=== PATIENT | male | born 1955 | race Caucasian/White ===

== ENCOUNTER 2022-01-12 13:42 | Outpatient (CLI) | payer OTHER, SELFPAY ==
[2022-01-12 14:02] LABS: Hemoglobin A1C* 6.2 % (0-5.6)
[2022-01-12 22:56] LABS: Chloride* 104 mmol/L (96-114); Potassium* 4.5 mmol/L (3.6-5.1); Sodium* 140 mmol/L (135-149)
[2022-01-12 22:59] LABS: Blood Urea Nitrogen* 26 mg/dL (7-30); Carbon Dioxide* 23 mmol/L (20-32); Creatinine* 0.9 mg/dL (0.5-1.5); Estimated Glomerular Filt Rate 93 ml/min
[2022-01-12 23:00] LABS: Calcium* 9.4 mg/dL (8.4-10.6); Glucose* 112 mg/dL (60-115)
== END 2022-01-12 13:43 | disposition home or self-care (01) ==
LOC: LKVREF 13:44
PROVIDERS: PCP Family Medicine; Visit Provider Family Medicine
DX: E11.9 Type 2 diabetes mellitus without complications (principal); I10 Essential (primary) hypertension
CPT/HCPCS: 80048; 83036

== ENCOUNTER 2022-01-20 09:02 | Outpatient (CLI) | payer OTHER, SELFPAY ==
--- NOTE | 2022-01-20 09:15 | MR_ITS ---
[facility] [address] [facility] [address] Phone:?[phone] Fax:?[phone] Referring Physician Information: Delvin Jones M.D. [id number] [facility] [address] Phone:?[phone] Fax:?[phone] Patient:No Jose D.O.B:?1955 Sex:?Male Phone:?[phone] [facility] MRN:?[id number] Exam Date:?01/20/2022 ? EXAM: MRI of the RIGHT KNEE, without contrast CLINICAL INFORMATION: Male, 66 years old, with medial right knee pain. INDICATION: Evaluate for meniscal tear. PRIOR SURGERY: None reported. PLAIN FILMS: None available. COMPARISONS: No prior MRIs available. TECHNICAL INFORMATION: Using a 1.5T MR scanner and a localizing surface coil: sagittals: PD, PDFS coronals: PD, STIR axials: PD, T2FS SEDATION: None CONTRAST: None FINDINGS: Knee joint: Effusion: Small right knee effusion. Popliteal cyst: None. Loose bodies: None. Subcutaneous and extra-articular soft tissues: Moderate anterior subcutaneous soft tissue swelling extending from the patella to the tibial tubercle (sagittal PDFS series 6 image 14). Ligaments: ACL: Intact ACL anteromedial and posterolateral bundles, without sprain or tear. PCL: Intact PCL, without acute or chronic injury. MCL: Intact MCL superficial and deep layers, without injury. LCL: Intact LCL, without injury. Posterolateral corner: No posterolateral corner soft tissue injury. Popliteus, biceps femoris, iliotibial band, popliteofibular ligament and lateral gastrocnemius are intact. Posteromedial corner: No posteromedial corner soft tissue injury. Semimembranosus, pes anserine tendons and posterior oblique ligament are without injury, tendinopathy or bursitis. Extensor mechanism: Patellar tendon: Intact, without tendinopathy. Quadriceps tendon: Intact, without tendinopathy. Retinacula: Medial and lateral retinacula are intact. Fat pads: Unremarkable infrapatellar Hoffa's, quadriceps and prefemoral fat pads. Medial compartment: Medial meniscus: Complex apical free edge and undersurface tearing of the posterior horn and body of the medial meniscus is present over a length of approximately 3.5 cm (sagittal PDFS series 6 images 19-25 and coronal STIR series 8 images 16-21). Meniscal extrusion measures 4 mm. No parameniscal cyst. A 7 x 6 x 3 mm flap fragment is located superior to the periphery of the body segment. Additionally, there is a 4 x 2 x 6 mm flap fragment in the meniscotibial recess (coronal STIR series 8 image 17 and axial T2FS series 4 image 22). Medial femoral condyle & tibial plateau: Broad-based grade II/III chondromalacia throughout the central, weightbearing aspect of the medial compartment, with minimal marginal osteophytosis. Lateral compartment: Lateral meniscus: Intrasubstance degeneration is present throughout the anterior and posterior roots of the lateral meniscus, without discrete lateral meniscal tearing. Lateral femoral condyle: No chondromalacia or osteochondral abnormality. Lateral tibial plateau: No chondromalacia or osteochondral abnormality. Patellofemoral joint: Patella: Broad-based grade II/III chondromalacia throughout the medial facet and median ridge of the patella, with minimal marginal osteophytosis. Trochlea: Broad-based mild grade II chondromalacia throughout the central sulcus of the trochlea, with minimal marginal osteophytosis. Proximal tibiofibular joint: Unremarkable, without evidence of ligament sprain injury, joint effusion or adjacent marrow edema. Bones: No stress/occult fractures or other marrow edema/pathology. IMPRESSION: 1. Complex apical free edge and undersurface tearing of the posterior horn and body medial meniscus measuring 3.5 cm, with 4 mm of meniscal extrusion and 2 small flap fragments, the larger of which measures 7 x 6 x 3 mm and is located superior to the periphery of the body segment. 2. Mild osteoarthritis of the medial and patellofemoral compartments. 3. Small knee joint effusion with nonspecific moderate anterior subcutaneous soft tissue swelling. No popliteal (Galo's) cyst. 4. No cruciate or collateral ligament sprain/tear. 5. No lateral meniscal tear or significant osteochondral abnormality of the lateral compartment. 6. No myotendinous abnormality. BC Electronically signed on 01/20/2022 11:57:00 AM by Codey Dias M.D.
== END 2022-01-20 09:03 | disposition home or self-care (01) ==
PROVIDERS: PCP Family Medicine; Visit Provider Family Medicine
DX: M25.561 Pain in right knee (principal); M23.221 Derangement of posterior horn of medial meniscus due to old tear or injury, right knee; M17.11 Unilateral primary osteoarthritis, right knee; M25.461 Effusion, right knee
CPT/HCPCS: 73721

== ENCOUNTER 2022-07-17 09:14 | Outpatient (CLI) | payer OTHER, SELFPAY ==
[2022-07-17 14:09] LABS: Albumin* 4.8 g/dL (3.3-5.0)
[2022-07-17 14:10] LABS: Chloride* 106 mmol/L (96-114); Potassium* 4.6 mmol/L (3.6-5.1); Sodium* 141 mmol/L (135-149)
[2022-07-17 14:12] LABS: Aspartate Amino Transferase* 31 U/L (12-35); Bilirubin Total* 0.8 mg/dL (0.1-1.5); Carbon Dioxide* 24 mmol/L (20-32); Cholesterol* 164 mg/dL (90-199); Creatinine Urine 164.7 mg/dL; Estimated Glomerular Filt Rate 81 ml/min; Total Protein* 7.9 g/dL (6.0-8.3)
[2022-07-17 14:13] LABS: Alanine Aminotransferase* 44 U/L (4-50); Alkaline Phosphatase* 56 U/L (40-150); Blood Urea Nitrogen* 25 mg/dL (7-30); Glucose* 137 mg/dL (60-115); HDL Cholesterol* 46 mg/dL (>=40); LDL Cholesterol Calculated 67 mg/dL (<100); Triglycerides* 257 mg/dL (40-149)
[2022-07-17 14:16] LABS: Microalbumin Creatinine Ratio 0 mg/g (0-30); Microalbumin Urine 1 mg/dL
== END 2022-07-17 09:15 | disposition home or self-care (01) ==
PROVIDERS: PCP Family Medicine; Visit Provider Family Medicine
DX: Z00.00 Encounter for general adult medical examination without abnormal findings (principal); E11.9 Type 2 diabetes mellitus without complications; E78.00 Pure hypercholesterolemia, unspecified; I10 Essential (primary) hypertension; E66.9 Obesity, unspecified; F41.9 Anxiety disorder, unspecified
CPT/HCPCS: 80053; 80061; 82043; 82570

== ENCOUNTER 2023-07-19 08:05 | Outpatient (REF) | payer OTHER, SELFPAY | END 2023-07-19 08:06 | disposition home or self-care (01) | LOC: NFLDREF 08:05 | PROVIDERS: PCP Family Medicine; Referring Provider Family Medicine; Visit Provider Family Medicine | DX: E11.9 Type 2 diabetes mellitus without complications (principal); E78.00 Pure hypercholesterolemia, unspecified; I10 Essential (primary) hypertension; Z12.5 Encounter for screening for malignant neoplasm of prostate | CPT/HCPCS: 80053; 80061; 82043; 82570; G0103 ==

== ENCOUNTER 2023-10-01 09:45 | Outpatient (RCR) | payer OTHER, SELFPAY ==
--- NOTE | 2023-09-10 14:17 | PT.OPE ---
PT [facility] Outpatient Eval PT [facility] Outpatient Eval Start: 09/10/23 13:43 Freq: Status: Active Protocol: Document 09/10/23 13:43 BMS (Rec: 09/10/23 13:44 BMS [id number]) E-signed By Mary Victoria PT Physical Therapy Outpatient Evaluation Insurance Information Recert Due Date 12/08/23 Insurance Information/Comments [employer] Advantage Medical Diagnosis OA R knee, strain R gastrocnemius S86.111A Strain of other muscles and tendons of posterior muscle group at lower leg level R leg M17.11 unilateral primary OA R knee Treating Diagnosis R knee pain M25.561 R leg pain M79.604 abnormalities of gait R26.89 R foot/ankle pain M25.571 Referring MD Rodo FERNANDO Subjective Subjective have had an extreme amount of stress as has been in and out of hospitals since last fall, just finished 3 months of home care and is on 30 meds , has dementia. I was on treadmill working on stress and fitness when I reached for [employer], must have bumpted the speed paddle on treadmill (cup reina is behind this) and speed went from 1-2 to 10, tried to step off to the side, L LE made it R did not, tread pulled leg under and back and skinned knee and bateman, still a little bit left. Feels like it gives out with standing up and step, pain can shoot from middle 3 toes on right foot up foot and leg, and cramping in thigh front and back. feels so tight , like a tug of war btwn foot and knee. today is 1st day with no crutches, di dhave hx of L foot fx, and L menisectomy L besides the tight and pain as well as Pain Comments -11/14 depend on activity and time of day. sitting to stand, 'tug of war btwn toes and knee'. feels like might give out when stand on it Current Work Status Retired Occupation W[employer] IN[employer] Precautions Treatment Precautions/Contraindications depression, HTN, OA, tremor ( on antiseizure med) Objective Range of Motion knee mobility R 0-0-115, L = 0 -0-135 hip flex > 50 w straight knee, > 80 w knee flex, not tolerated > 80 due to inc pain in back and hip Strength MMT seated hip flex R 4-/5, L 4/5 quad R 4-/5, L 5/5 HS 4-/5, L 5/5 seated abd/ add 4/5 wtih increased large amplitude tremors. Swelling across patella R = 42.0, L = 41.25 12 cm distal to inferior pole of patella: R= 44.75, L = 46. 75cm Palpation mod to severe tenderness of calf mack gastrox prox and HS mid to distal. restrictions in tissue mobility noted throughout quad, HS and calf. pain with ROM resting tremor B UE and LE to various degrees. Balance & Gait wide RIP, some deviation from path with antalgia, lack of pushoff Posture head forward inc shoulder rounding forward, inc body habitus, R LE alt neutral to IR. in standing Other/Pertinent Objective (-) Tiara, PCl, varus/ valgus. unable to scour due to pain Assessment Assessment/Impression Patient is very pleasant 68 yo male referred for R knee pain after fall on a treadmill in Jun. He reports pain today of 4-11/14, has seen ortho who referred him for suspected gastroc strain and OA. He presents with antalgic wide based gait, (no axillary crutches this date though patient admits this is first day without them) weakness and pain in R knee and lower leg. Denies numbness but reports cramping in thigh and hamstring as well as sharp shooting pain from middle 3 toes on R foot through leg. Has had episodes of feeling the knee would give out with sit/ stand and step. He presents today with impaired tissue mobility HS, calf and quad, resting tremor that does not go away with intention in all 4 limbs to varying degrees, including in hip abd/ add with exertion. Does eliminate with rested supine and pillow under knee. Further assess may be warranted in future, but may also be due to inc stress. Balance not assessed this date, primary focus was on calming symptoms and strengthening for ADLs and tasks asssociated with being primary caregiver dependent caregiving of . Patient fredrick steen HS curl in prone , and reports pain and tightness much improved after session. He is appropriate for skilled physical therapy to improve mobility, strength and balance/ gait as well as pain management for return to walking and exercise classes for managment of chronic conditions including depression and HTN and elevated stress. Primary Functional Limitations reach, lift, walk, roll in bed , sit to stand, steps, gait for fitness Plan of Care Rehabilitation Potential Good Physical Therapy Goals 1) Pt demo I with home program for strength, flexibility and balance as well as pain management strategies. 2) Pt demo gait pattern without antalgia, with equal stride lengths and demo appropriate hip, knee, and ankle motions. 3) Pt demo appropriate balance responses to decrease risk of falls with internal and external perturbations. 4) Pt demo ability to ascend/ descend steps without pain or failure to control eccentric motion for access to home laundry and shower. 5) Pt will demo 500' ambulation without limp and with best mechanics and balance to decrease risk of fall with community ambulation for things such as grocery shopping, participation in fitness activities. 6) Pt will demo ability to return to walking, and functional strengthening for management of comorbidities to maximize independence and longevity. Coordination/Communication With Referral Source Treatment Plan/Direct Interventions Electrical Stimulation,Gait Training,Ice/Cold/ Vasopneumatic,Manual Therapy, Neuromuscular Re-ed,Orthotics/ Braces,Self-Care/Home Management,Therapeutic Activities,Therapeutic Exercises,Ultrasound Frequency/Duration 1-2x week x 10 sessions Patient Will Be Discharged From Therapy Completion of LTG(s),Skills Plateau,Independent w/HEP, Independently Progressing Evaluation Billing Untimed Code Treatment Minutes 40 Complexity Low Certification Information Initial Certification Date 09/10/23 Ending Certification Date 12/08/23 Provider Signature Shows Agreement With POC & Medical Necessity Physician Signature & Date Requested Please Sign/Date Here Physician Comment/Change : Physician NPI Number #
== END 2024-01-29 23:59 | disposition home or self-care (01) ==
PROVIDERS: PCP Family Medicine; Visit Provider Orthopaedic Surgery Sports Medicine
DX: S86.111A Strain of other muscle(s) and tendon(s) of posterior muscle group at lower leg level, right leg, initial encounter (principal); M17.11 Unilateral primary osteoarthritis, right knee; M25.561 Pain in right knee; M79.604 Pain in right leg; R26.89 Other abnormalities of gait and mobility; M25.571 Pain in right ankle and joints of right foot; Z51.89 Encounter for other specified aftercare
CPT/HCPCS: 97110; 97140; 97161

== ENCOUNTER 2024-03-06 07:36 | Outpatient (CLI) | payer OTHER, SELFPAY ==
--- NOTE | 2024-03-06 10:13 | W.ANESCHARGE ---
Anesthesia Charges Start Date/Time Anesthesia Start Date: 03/06/24 Anesthesia Start Time: 09:01 Stop Date/Time Anesthesia Stop Date: 03/06/24 Anesthesia Stop Time: 08:31
--- NOTE | 2024-03-06 11:04 | W.ANESCHARGE ---
Anesthesia Charges Start Date/Time Anesthesia Start Date: 03/06/24 Anesthesia Start Time: 09:01 Stop Date/Time Anesthesia Stop Date: 03/06/24 Anesthesia Stop Time: :31 Summary Extremes of Age - Over 70 or under 1: MDA
--- NOTE | 2024-03-06 11:08 | W.ANESCHARGE ---
Anesthesia Charges Start Date/Time Anesthesia Start Date: 03/06/24 Anesthesia Start Time: 09:01 Stop Date/Time Anesthesia Stop Date: 03/06/24 Anesthesia Stop Time: 09:31
== END 2024-03-06 07:37 | disposition home or self-care (01) ==
LOC: OP CLINIC 07:36
PROVIDERS: PCP Family Medicine; Visit Provider Surgery
DX: Z12.11 Encounter for screening for malignant neoplasm of colon (principal); Z86.010 Personal history of colon polyps
CPT/HCPCS: 00811; 00812; 00813; 45378; 99100

== ENCOUNTER 2024-07-17 08:17 | Outpatient (CLI) | payer MEDICARE, SELFPAY | END 2024-07-17 08:18 | disposition home or self-care (01) | LOC: NFLDREF 07-21 03:05 | PROVIDERS: PCP Family Medicine; Referring Provider Family Medicine; Visit Provider Family Medicine | DX: E11.9 Type 2 diabetes mellitus without complications (principal); I10 Essential (primary) hypertension; E78.00 Pure hypercholesterolemia, unspecified; Z12.5 Encounter for screening for malignant neoplasm of prostate | CPT/HCPCS: 80053; 80061; 82043; 82570; G0103 ==

== ENCOUNTER 2025-01-03 12:50 | Emergency (ER) | payer MEDICARE, SELFPAY ==
--- OUTSIDE RECORDS SUMMARY | 2025-01-03 12:52 | XMS_ITS | Clinical Summary ---
Author Organization [facility] Address [address] [place] [id number] Care Team Providers Care Manager Research Name Role Phone Julius Avalos MD Primary Care Provider [phone] Allergies No known active allergies Medications aspirin 81 mg tabletIndicatio ns:myocardial infarction prevention Take 81 mg by mouth once daily with a meal. Indications: MYOCARDIAL INFARCTION PREVENTION Active atenolol (TENORMIN) 50 mg tabletIndicatio ns:hypertension Take 50 mg by mouth once daily. Takes in the evening Indications: HYPERTENSION Active ibuprofen (ADVIL; MOTRIN) 200 mg tabletIndicatio ns:pain Take 200 mg by mouth 4 times daily if needed. Indications: PAIN Active minocycline (MINOCIN) 100 mg tablet Take 100 mg by mouth once daily. Active multivitamin (MVI) tabletIndicatio ns:vitamin deficiency prevention Take 1 tablet by mouth once daily. Indications: VITAMIN DEFICIENCY PREVENTION Active sertraline (ZOLOFT) 50 mg tablet Take 100 mg by mouth once daily. Active Active Problems Problem Noted Date Diagnosed Date Tear of medial cartilage or meniscus of knee, cu rrent 03/08/2012 Immunizations Immunization Administration Dates Next Due Influenza, High-dose Inactivated 03/06/2013 Influenza, IIV3 (Age >=3 years) 03/17/2011,03/19 Tdap 03/08/2012 Zoster (Zostavax-ZVL, live) 05/22/2013 Social History Tobacco Use Types Packs/Day Years Used Date Smoking Tobacco: Never Smokeless Tobacco: Never Alcohol Use Standard Drinks/Week Comments Not Asked 0 (1 standard drink = 0.6 oz pur e alcohol) 1-2 per year Sex and Gender Information Value Date Recorded Sex Assigned at Not on file Legal Sex Male 6:20 AM TAPE DUPLICATOR Gender Identity Not on file Sexual Orientation Not on file Obstetrics History Last Filed Vital Signs Vital Sign Reading Time Taken Comments Blood Pressure 126/86 06/19/2013 10:15 AM TAPE DUPLICATOR Pulse 80 06/19/2013 10:15 AM TAPE DUPLICATOR Temperature 36.2 C (97.2 F) 06/19/2013 10:15 AM TAPE DUPLICATOR Respiratory Rate 16 06/19/2013 10:1 5 AM TAPE DUPLICATOR Oxygen Saturation 98% 06/19/2013 10: 15 AM TAPE DUPLICATOR Inhaled Oxygen Concentration - - Weight 116.7 kg (257 lb 3.2 oz) 06/19/2013 7:31 AM TAPE DUPLICATOR Height 177.7 cm (5' 9.96) 06/19/2013 7:31 AM CS T Body Mass Index 36.95 06/19/2013 7:31 AM TAPE DUPLICATOR Plan of Treatment Health Maintenance Due Date Last Done Comments Depression screening for age 12+ 1965 BMI (ht and wt on same day) for age 18+ 1971 Hepatitis C screening for ag e 18-79 1971 Colonoscopy through age 75 1998 Lipids for age 45-75 1998 Pneumococcal series for age 50+ (1 of 1 - PCV) 2003 Zoster (shingles) series for age 50+ (2 of 3) 07/17/2013 05/22/2013 Tetanus booster 03/08/2022 03/08/2012 COVID-19 vaccine series ( - season) 2024 Influenza Vaccine (#1) 2025 3, 03/17/2011, 03/19/2009 RSV vaccine for adults or (1 - 1-dose 75+ series) 2028 Hepatitis B series for 19+ Aged Out N o longer eligible based on patient's age to complete this topic Insurance [facility] [place] Advance Directives * Full Code (Latest Code Status on File) Date Activated Date Inactivated Comments 06/19/2013 6:57 AM 06/19/2013 12:28 PM * Full Code Date Activated Date Inactivated Comments 03/09/2012 11:47 AM 03/09/2012 3:49 PM * Full Code Date Activated Date Inactivated Comments 03/08/2012 4:31 PM 03/09/2012 11:47 AM Care Teams Manager Research Relationship Specialty Start Date End Date Julius Avalos MD PCP - General Family Practice 02/29/12
[2025-01-03 12:58] VITALS: BP 127/78; PULSE 78; RESP 20; TEMP 36.2; O2SAT 98
--- NOTE | 2025-01-03 13:48 | ED_ITS ---
HPI - General Adult General Date Seen: 01/03/25 Chief complaint: Back Injury/Pain Stated complaint: Back pain Time Seen by Provider: 01/03/25 13:06 History of Present Illness HPI narrative: 69 yo M with history of diabetes, hypertension, cholesterol, elevated BMI, depression/anxiety, sleep apnea who is brought to the ER today by EMS for back pain. His back pain began yesterday. He does not have any history of longstanding back pain no history of back surgeries. He did have to bend over to help his yesterday. She does have dementia and uses a wheelchair for a lot of her transfers. He is back did feel little bit stiff yesterday after helping his and was stiff when he went to bed. When he woke up this morning and more stiffness in his back but he was able to get up and start his day. He actually went to [facility] today. He planned to soak in a hot tub for his back right thumb do a workout. However when he was moving to the shower at [facility] he felt as though he had a stone in his flip-flop. He bent forward and try to bend his left leg up to take the stone out and when he did that he had abrupt onset of a severe pain in his mid low back. It felt like his muscles were spasming and twinging. He was quite intense and he has done under the hot shower for a few minutes and was able to get it to resolve. He decided not to do the hot tub. He was able to get out of life time and get back into his car but upon getting back into the car his pain got worse again. He was able drive home he notes that after getting out of his car at home and moving up the steps he was having severe twinges of pain in his back. He was calling out in crying to his because of the pain. He was not really able to walk any further so called 911. He received Toradol through an IV stabs by EMS and had only partial improvement. He is not resting in bed without too much pain but has lot of pain whenever he tries to sit up or move. The pain is located in the midline of his upper low back. He does not have any pain into his flanks or into his abdomen. No pain into his ribs or chest. No pain or numbness radiating down his legs. Bowel movements and urination has been normal. No recent falls or injuries. No history of cancer. No history of immunosuppression. Related Data Home Medications ?Medication ?Instructions ?Recorded ?Confirmed clindamycin phosphate 1 % topical 1 applic topical .ev angela other day 01/12/22 01/03/25 solution aspirin 81 mg tablet,delayed 81 mg PO QDAY 01/23/22 release (Adult Aspirin Regimen) multivitamin (Multiple Vitamins 1 tab PO QDAY 01/23/22 01/03/25 tablet) triamcinolone acetonide 0.025 % 1 applic topical BID 0 01/23/22 01/03/25 topical cream clobetasol 0.05 % scalp solution topical BID PRN itch 01/20/24 10/09/24 Previous Rx's ?Medication ?Instructions ?Recorded metronidazole 0.75 % topical cream 1 applic topical BI D #45 grams 09/11/22 (MetroCream) clonazepam 0.5 mg tablet 0.5 mg PO .hs #90 tabs 08/01 lisinopril 10 mg tablet 10 mg PO QDAY #90 tabs 08/01 sertraline 100 mg tablet 100 mg PO QDAY #90 tabs 07/09 10/29 atorvastatin 10 mg tablet 10 mg PO QHS #90 tabs metoprolol succinate 50 mg 50 mg PO DAILY #90 tabs 08/01 tablet,extended release 24 hr semaglutide 3 mg tablet (Rybelsus) 3 mg PO QDAY #90 ta bs 11/02/24 Allergies Allergy/AdvReac Type Severity Reaction Status Date / Time No Known Drug Allergies Allergy Verified 01/03/25 13:30 [facility] Medical History (Updated 01/03/25 @ 16:15 by Dennis Da Silva MD) Obesity (BMI 30-39.9) ?E66.9 - Obesity, unspecified (ICD-10) Degenerative tear of medial meniscus of right knee ?M23.203 - Derangement of unspecified medial meniscus due to old tear or injury, right knee (ICD-10) Osteoarthritis of right knee ?M17.11 - Unilateral primary osteoarthritis, right knee (ICD-10) Folliculitis ?L73.9 - Follicular disorder, unspecified (ICD-10) Rosacea ?L71.9 - Rosacea, unspecified (ICD-10) Diabetes mellitus ?E11.9 - Type 2 diabetes mellitus without complications (ICD-10) Encounter for annual wellness exam in Medicare patient ?Z00.00 - Encounter for general adult medical examination without abnormal findings (ICD-10) Knee pain, right ?M25.561 - Pain in right knee (ICD-10) Surgical History (Updated 01/20/22 @ 12:32 by Urvashi Gallagher ~ [facility], REGISTERED PHARMACY TECHNICIAN) History of lateral meniscus repair of left knee ?Z98.890 - Other specified postprocedural states (ICD-10) Status post cholecystectomy ?Z90.49 - Acquired absence of other specified parts of digestive tract (ICD- 10) History of oral surgery ?Z98.890 - Other specified postprocedural states (ICD-10) Family History (Updated 01/20/22 @ 12:34 by Urvashi Gallagher ~ [facility]) Mother Heart problem High blood pressure Father Heart problem High blood pressure Maternal Grandmother Stroke Maternal Grandfather Stroke Paternal Grandfather Suicide Social History (Updated 08/02/24 @ 08:45 by Patricia Capellan ~ [facility]) What is your current living situation?: I presently have a place to live Problems where you live: no known problems In the past 12 months, utilities in danger of being shut off: no In past 12 months, lack of transportation kept you from medical appts, meetings, work, or getting things needed for daily living: no In the past 12 mos, have been you worried that your food would run out before you had money to buy more?: never true In the past 12 mos, the food you bought just didn't last and you didn't have money to buy more?: never true Smoking Status: Never smoker How often do you have a drink containing alcohol: monthly or less AUDIT-C Alcohol total score: 1 Non-prescribed substance use: denies use How often does anyone, including family, friends and others, physically hurt you : never How often does anyone, including family, friends and others, insult or talk down to you: never How often does anyone, including family, friends and others, threaten you with harm: never How often does anyone, including family, friends and others, scream or curse at you: never Exam Narrative: Exam Narrative: Constitutional: Appears well-developed and well-nourished. Alert. Conversant. Non toxic. HENT: Head: Atraumatic. Nose: Nose normal. Mouth/Throat: Oral mucosa is clear and moist. no trismus. Eyes: Conjunctivae normal. EOM normal. Pupils equal, round, and reactive to light. No scleral icterus. Neck: Normal range of motion. Neck supple. No tracheal deviation present. Cardiovascular: Normal rate, regular rhythm. No gallop. No friction rub. No murmur heard. Symmetric radial artery pulses Pulmonary/Chest: Effort normal. No stridor. No respiratory distress. No wheezes. No rales. No rhonchi . No ribcage tenderness. Abdominal: Soft.No distension. No mass. No tenderness. No rebound. No guarding. No CVA tenderness Musculoskeletal: RUE: Normal range of motion. No tenderness. No deformity LUE: Normal range of motion. No tenderness. No deformity RLE: Normal range of motion. No edema. No tenderness. No deformity LLE: Normal range of motion. No edema. No tenderness. No deformity Lymph: No cervical adenopathy. Neurological: Alert and oriented to person, place, and time. Normal strength. CN II-VII intact. No sensory deficit. GCS eye subscore is 4. GCS verbal subscore is 5. GCS motor subscore is 6. Normal coordination Skin: Skin is warm and dry. No rash noted. No pallor. Normal capillary refill. Sensory: Normal light touch sensation bilaterally on the anteromedial thigh (L3), medial malleolus (L4), dorsal first web space (L5), lateral malleolus (S1). Strength: 5/5 strength hip flexors (L3) on the rig ht and left 5/5 strength in the quadriceps (L4) on t he right and left 5/5 strength in the tibialis anterior 5/5 strength in the EHL (L5) on the righ t and left 5/5 strength in the gastrocnemius (S1) o n the right and left 5/5 strength in the hamstring on the rig ht and left DTRs: symmetric in the patella (2/4) and in the achilles tendons. Negative straight leg raise bilaterally. Psychiatric: Normal mood. Normal affect. Const: Vital Signs, click to edit/add: Vital Signs - 24 hr 01/03/25 12:58 01/03/25 15:43 Temperature 97.2 F L 97.6 F Pulse Rate [Pulse Oximeter] 78 70 Respiratory Rate 20 18 Blood Pressure [Ri ght Upper Arm] 127/78 122/70 Pulse Oximetry 98 95 Oxygen Delivery Me thod Room Air Room Air Course Course ED Course: Recheck-pain improved. Able to ambulate in the hallways only has a mild spasm. Vital Signs Vital signs: Initial Vital Signs Temperature 97.2 F L 01/03/25 12:58 Temperature Source Temporal Artery Scan 01/03/25 12:58 Pulse Rate 78 01/03/25 12:58 Respiratory Rate 20 01/03/25 12:58 Blood Pressure 127/78 01/03/25 12:58 Blood Pressure Mean 94 01/03/25 12:58 Pulse Oximetry 98 01/03/25 12:58 Oxygen Delivery Method Room Air 01/03/25 12:58 Vital Signs Temperature 97.2 F L 01/03/25 12:58 Pulse Rate 78 01/03/25 12:58 Respiratory Rate 20 01/03/25 12:58 Blood Pressure 127/78 01/03/25 12:58 Pulse Oximetry 98 01/03/25 12:58 Oxygen Delivery Method Room Air 01/03/25 12:58 Temperature 97.6 F 01/03/25 15:43 Pulse Rate 70 01/03/25 15:43 Respiratory Rate 18 01/03/25 15:43 Blood Pressure 122/70 01/03/25 15:43 Pulse Oximetry 95 01/03/25 15:43 Oxygen Delivery Method Room Air 01/03/25 15:43 Medications Administered Medications: Discontinued Medications Generic Name Dose Route Start Last Admin Trade Name Bessie PRN Reason Stop Dose Admin Diazepam 5 mg 01/03/25 14:06 01/03/25 14:17 Diazepam 5 Mg Tablet PO 01/03/25 14:07 5 mg ONCE ONE Administration Hydromorphone HCl 1 mg 01/03/25 14:06 01/03/25 14:19 Hydromorphone 0.5 Mg/0.5 Ml Inj IVP 01/03/25 14:07 1 mg ONCE ONE Administration Medical Decision Making [facility] Narrative Medical decision making narrative: This patient presented with back pain. Broad differential considered. He started having back pain and stiffness yesterday after he had helped his off the floor. The patient did not sustain any trauma, therefore x-rays are not necessary due to the low likelihood of fracture or subluxation. No red flag symptoms to suggest CT and/or MRI is indicated at this point. The patient has not had a fever, saddle/perineal anesthesia, bilateral foot numbness, or bowel or bladder dysfunction. There is no clinical evidence of cauda equina syndrome, discitis, spinal/epidural space hematoma or epidural abscess. The neurological exam is normal and the patient's symptoms seem consistent with a musculoskeletal issues and significant muscle spasm. Pain has improved with interventions in the emergency department. The patient will be discharged with pain medications to use as directed. Ice or heat to the back and stretching exercises. No heavy lifting, bending or twisting. Return if increasing pain, numbness, weakness, or bowel or bladder dysfunction. The patient was advised to schedule follow-up with their primary doctor within 3-5 days to re-assess symptoms. Return precautions reviewed and questions answered. Instymeds prescription for oxycodone 5 mg tablets, Flexeril 10 mg tablets to use p.r.n.. He will use [id number] Tylenol and ibuprofen as well as ice/heat 1st. Opiate and sedation precautions reviewed. Discharge Plan Discharge Clinical Impression: Acute low back pain Patient Disposition: Home, Self-Care Condition: Stable Instructions: Acute Low Back Pain (ED) Additional Instructions: As we discussed, to help manage her low back pain for the next few days, try to stick to light duty and gentle activities. Avoid strict bed rest. However he should also avoid activities require bending or twisting, lifting objects more than 8 lb, or other activities that worsen your lower back pain. Start with light activity. He can try ice packs or warm packs to help with her pain. Next you can use [id number] medications such as acetaminophen or ibuprofen. Use the prescription muscle relaxers and pain killers only if needed for pain uncontrolled but the other means. Be careful because muscle relaxers and pain killers can cause dizziness, drowsiness, constipation, and can be addictive. If you have worsening or severe pain, numbness or pain radiating down your leg, malfunction of your bladder or bowels, fever, or any concerns, please return to the ER right away. If your back pain is not completely improved within 3-5 days, please recheck with your doctor or the ER. Prescriptions: No Action clobetasol 0.05 % solution topical BID PRN (Reason: itch) clindamycin phosphate 1 % solution 1 applic topical .every other day multivitamin [Multiple Vitamins] Tablet 1 tab PO QDAY aspirin [Adult Aspirin Regimen] 81 mg tablet,delayed release (DR/EC) 81 mg PO QDAY triamcinolone acetonide 0.025 % cream 1 applic topical BID Rx Instructions: Apply topically to affected area twice daily as needed lisinopril 10 mg tablet 10 mg PO QDAY Qty: 90 3RF sertraline 100 mg tablet 100 mg PO QDAY Qty: 90 3RF metronidazole [MetroCream] 0.75 % cream 1 applic topical BID Qty: 45 0RF Rx Instructions: Apply twice daily to face clonazepam 0.5 mg tablet 0.5 mg PO .hs Qty: 90 1RF metoprolol succinate 50 mg tablet extended release 24 hr 50 mg PO DAILY Qty: 90 2RF atorvastatin 10 mg tablet 10 mg PO QHS Qty: 90 2RF Rybelsus 3 mg tablet 3 mg PO QDAY Qty: 90 0RF Follow Up/Referrals: Delvin Jones MD [Primary Care Provider, Family Practice] [facility]: [facility] Inst[facility]
[2025-01-03 15:43] VITALS: BP 122/70; PULSE 70; RESP 18; TEMP 36.4; O2SAT 95
== END 2025-01-03 16:39 | disposition home or self-care (01) ==
PROVIDERS: Emergency Provider Emergency Medicine; PCP Family Medicine
DX: M54.50 Low back pain, unspecified (principal)
CPT/HCPCS: 96374; 99282; 99284; J1171